=== PATIENT | male | born 1955 | race Caucasian/White ===

== ENCOUNTER 2020-12-04 19:13 | Emergency (ER) | payer OTHER ==
[2020-12-04 19:37] VITALS: PULSE 62; TEMP 98.6; BMI 26.2
[2020-12-04 20:14] LABS: BASO % 0.5 % (0-2.0); EOS % 4.7 % (0-4.5); HEMATOCRIT 41.5 % (35.4-49); HEMOGLOBIN 14.2 GM/dl (11.7-16.9); LYMPH % 26.1 % (8-40); MCHC 34.2 g/dl (32.0-35.9); MEAN CELL VOLUME 99.3 fl (80-96); MEAN PLT VOLUME 9.3 fl (7.5-11.1); MONO % 7.6 % (3.8-10.2); NEUT % 61.1 % (42.8-82.8); PLATELET COUNT 229 10^3/uL (134-434); RBC 4.18 M/mm3 (4.00-5.60); RDW 12.8 % (11.9-15.9); WHITE BLOOD COUNT 7.6 K/mm3 (4.0-10.8)
[2020-12-04 20:20] LABS: ALBUMIN 4.4 g/dl (3.4-5.0); BILIRUBIN,TOTAL 1.7 mg/dl (0.2-1); CREATININE 1.4 mg/dl (0.55-1.3); TOT PROT 7.3 g/dl (6.4-8.2)
[2020-12-04 20:21] LABS: EPITHELIAL CELLS RARE /hpf
[2020-12-04] MEDS ORDERED: SODIUM CHLORIDE 1,000 ML IV ONE (20:40)
[2020-12-04 21:12] VITALS: BP 123/65
== END 2020-12-04 21:25 | disposition home or self-care (01) ==
LOC: FER 19:13
PROC: 3E0337Z Introduction of Electrolytic and Water Balance Substance into Peripheral Vein, Percutaneous Approach (ICD-10-PCS; principal; 2020-12-04)
DX: R41.3 Other amnesia (principal)
CPT/HCPCS: 36415; 70450-TC; 80053; 81003; 81015; 85025; 93005; 96360; 99285-25

== ENCOUNTER 2021-10-28 12:19 | Emergency (ER) | payer OTHER ==
[2021-10-28 12:39] VITALS: BP 142/74; PULSE 62; TEMP 97.7; BMI 24.5
[2021-10-28] MEDS ORDERED: ACETAMINOPHEN 500 MG TABLET (FP) PO ONE (12:41)
[2021-10-28] MEDS ORDERED: ACETAMINOPHEN 500 MG TABLET (FP) ONE (13:04)
== END 2021-10-28 16:29 | disposition home or self-care (01) ==
LOC: FER 12:19
DX: S22.42XA Multiple fractures of ribs, left side, initial encounter for closed fracture (principal); S32.019A Unspecified fracture of first lumbar vertebra, initial encounter for closed fracture; W11.XXXA Fall on and from ladder, initial encounter
CPT/HCPCS: 70450-TC; 71250-TC; 72125-TC; 74176-TC; 99284-25